=== PATIENT | male | born 1965 ===

== ENCOUNTER 2024-09-18 19:27 | Inpatient (IN) | payer OTHER, SELFPAY ==
[2024-09-18] VITALS (17 sets, daily range): BP systolic 81–121; BP diastolic 66–86; BMI 32.3
[2024-09-18] MEDS: NSS 500 IV (14:07)
[2024-09-18 14:08] LABS: Hematocrit 38.2 % (39.0-52.0); Hemoglobin 12.9 g/dL (13.0-18.0); Mean Corp Hgb Conc. 33.8 g/dL (33.0-37.0); Mean Corpuscular Hgb 30.4 pg (27.0-31.0); Mean Corpuscular Volume 90.1 fL (80.0-94.0); Red Blood Cell Count 4.24 10^6/uL (4.70-6.10); Red Cell Dist. Width 15.3 % (11.5-14.5); White Blood Cell Count 4.2 10^3/uL (4.8-10.8)
[2024-09-18] MEDS: ASPIRIN 325 MG PO (14:12)
--- NOTE | 2024-09-18 14:12 | ED.GENMED ---
Addendum entered and electronically signed by Donal Hernandez DO 09/18/24 15:26:
Call from pathologist patient with an abnormal smear blasts question of MDS, message sent to cardiology and hospitalist also copied oncology
Original Note:
History of Present Illness
General
Chief Complaint: Chest Pain
Source: patient and family
Exam Limitations: none
Time Seen by Provider: 09/18/24 13:45
History of Present Illness
History of Present Illness:
59-year male hypertensive diabetic 3 days of chest pain pressure with cough in his left chest and back worse with a deep breath does not go to his jaw on her arm, saw chemical equipment sales engineer that hold him referred here for cardiac cath initially told me he had
no chest pain and he told me he had mild chest pain, has some leg swelling had a recent procedure on his leg, takes aspirin but no other blood thinners, mother had CAD,
Phy Exam
Physical Exam
Physical Exam:
Physical Exam
General: 59-year-old male hypotensive nontoxic
Neck: No jaundice
Heart: s1/s2 regular rate and rhythm, no murmur. equal radial pulses.
Lungs: no acute respiratory distress. clear bilaterally
Abdomen: Not not
Neuro: alert and oriented. no focal neurological deficits
Skin: no rash
Psychiatric: well kept. interactive and cooperative
Extremities: Question left greater than right calf edema without pain
Scores
Heart Score for Chest Pain Patients
STEMI patient?: No
History: Moderately Suspicious
ECG: Significant ST-Depression
Age: >45 - <65 years
Risk Factors: >/= 3 Risk Factors or History of CAD
Troponin: >1 - <3 x Normal Limit
Heart Score for Chest Pain Patients: 7
Heart Score Risk: 72.7 % MACE over next 6 weeks
Course
Orders/Labs/Results
Orders:
Orders
09/18/24 12:40
Electrocardiogram (*1) Urgent
Reason for Study: Chest Pain
EKG- Treatment ONCE
09/18/24 13:50
Complete Blood Count/With Diff Urgent
Comprehensive Metabolic Panel Urgent
Magnesium Urgent
Manual Differential Urgent
Troponin I Urgent
09/18/24 13:54
Aspirin 325 mg PO NOW STA
09/18/24 13:55
Heparin 4,000 units IV NOW STA
Nursing to Place Non Medication Order As Directed
Physician Order: PTT 6 hours after initial start of Heparin infusion
Above order entered?: Yes
09/18/24 13:59
PTT Urgent
Comment: Obtain baseline before beginning heparin infusion if not already collected
09/18/24 14:00
Heparin 27889 Units/250 ml 25,000 units in 250 ml IV PER PROTOCOL
Weight to be used for heparin protocol in kilograms (kg):: 105
Protocol:: Cardiac Tx/Acute Coronary
PTT Goal Range to be used:: PTT 73 to 111 seconds
Order type:: Initial
INITIAL Infusion Dose (UNITS/KG/hr) & then follow protocol:: 12 units/kg/hr
Infusion Dose in UNITS/hr & then follow protocol (UNITS/hr):: 1,000
INFUSION RATE in mL/hr & then follow protocol (mL/hr):: 10
PTT less than or equal to 64 seconds:: Increase rate by 200 units/hr (+ 2 mL/hr)
PTT 64.1 to 72.9 seconds:: Increase rate by 100 units/hr (+ 1 mL/hr)
PTT 73 to 111 seconds:: Target Range. No change in rate.
PTT 111.1 to 130.9 seconds:: Decrease rate by 100 units/hr (- 1 mL/hr)
PTT 131 to 199.9 seconds:: HOLD for 1 hr. Then decrease rate by 200 units/hr (- 2 mL/hr)
PTT greater than or equal to 200 seconds:: HOLD for 2 hrs & Notify Provider. Then decrease by 200 units/hr (-
2 mL/hr)
Lab follow-up:: Each change, PTT q6h until 2 consecutive are therapeutic. Then PTT
daily.
09/18/24 14:01
Nitroglycerin 100 mg/250 ml [Nitroglycerin Premix] 100 mg in 250 ml .ROUTE .STK-MED
09/18/24 14:02
0.9% Sodium Chloride 500 ml [Nss] 500 ml IV BOLUS
09/18/24 14:06
CXR Port [CR Chest Portable - 1 View] Stat
Comment:
Reason For Exam: cp
Reason Study Needs to be Portable: Patient Unstable
09/18/24 14:11
CT Chest PE Study Stat
Comment:
Reason For Exam: cp stat no labs
09/18/24 14:15
Nitroglycerin 100 mg/250 ml [Nitroglycerin Premix] 100 mg in 250 ml IV PER PROTOCOL
Initial dose in mcg/min, then titrate:: 20
Titrate to keep:: Chest Pain Free
Titrate by mcg/min:: 5 mcg/min, may increase by 10 mcg/min if dose > 20 mcg/min
Frequency of titrations (minutes):: every 3-5 minutes
Maximum dose in mcg/min:: 200
Begin to taper infusion when:: Remained at goal for 2hrs
Taper by mcg/min:: 5 mcg/min
Frequency of taper (minutes) if patient maintains goal:: 30
Taper to off?: Yes
If infusion off & no longer maintaining goal:: Contact Provider
09/18/24 20:15
PTT Urgent
Abnormal Lab Results
09/18/24 09/18/24
13:50 13:59
WBC 4.2 L 10^3/uL
(4.8-10.8)
RBC 4.24 L 10^6/uL
(4.70-6.10)
Hgb 12.9 L g/dL
(13.0-18.0)
Hct 38.2 L %
(39.0-52.0)
RDW 15.3 H %
(11.5-14.5)
APTT 40.5 H Sec
(23.4-35.0)
BUN 22 H mg/dl
(9-20)
Troponin I 0.283 H* ng/ml
09/18/24 13:50
09/18/24 13:50
Vital Signs
Initial and Last Documented VS:
Initial Vital Signs
Temp Pulse Resp BP Pulse Ox
97.9 F 48 18 121/76 99
09/18/24 12:46 09/18/24 12:46 09/18/24 12:46 09/18/24 12:46 09/18/24 12:46
Last Documented Vital Signs
Temp Pulse Resp BP Pulse Ox
97.9 F 77 29 97/71 94
09/18/24 12:46 09/18/24 14:20 09/18/24 13:49 09/18/24 14:20 09/18/24 14:20
MDM/Problems Addressed
Differential Diagnosis Includes:
ACS unstable angina accelerated angina sputtering angina PE
MDM/Problems Addressed:
Chest pain shortness of breath
Chronic conditions affecting care: DM and HTN
Acute Exacerbation and/or Progression of Chronic Illness: DM and HTN
*Radiology
Radiology exam reviewed: preliminary read by ED provider
*Pulse Oximetry
Patient hypoxic: no
*EKG
Interpreted by ED Provider?: Yes
Interpretation: abnormal
Comparison EKG: no comparison EKG present
Heart Rate: 78
Rate: normal
Rhythm: sinus
Ischemia: non-specific ST changes
*Copper Tapper Interpretation
Rate: normal
Interpretation: normal
Heart Rate: 78
Rhythm: sinus
*Critical Care Note
Total Time (30-74mins, 75-104mins- exclusive of procedures): 31
Update Note
Update Note:
Update
Was some concern of pleuritic chest pain, sent for CT scan reviewed with radiology no PE, no dissection, troponin noted creatinine noted, cardiology Updated via text
ED Attending Note
-
Portions of this chart may have been created with voice recognition software.� Occasional wrong word or��sound alike� substitutions may have occurred due to the inherent limitations of voice recognition software.
Discharge Plan
Departure
Patient Disposition: Admit
Date of Disposition: 09/18/24
Time of Disposition: 14:57
Admit to: [facility]
Admit to doctor: tricia
Presentation/result/management discussed w/ accepting MD/DO: cardiology
Condition: Serious
Covid-19: Not Applicable
Discharge Problem:
ACS (acute coronary syndrome)
Prescriptions:
No Action
aspirin 81 mg Tablet,Delayed Release (Dr/Ec)
81 mg PO DAILY
temazepam 15 mg Capsule
15 mg PO HSPRN PRN (Reason: anxiety/sleep)
valsartan 40 mg Tablet
40 mg PO HS
rosuvastatin 5 mg Tablet
5 mg PO HS
Mounjaro 15 mg/0.5 mL Pen Injector
15 mg SC TU
Referrals:
Jose Toribio MD [Family Provider] -
Interventions
Interventions:
*Risk Screen - Suicide Last Done: 09/18/24 12:49
*General Assessment Last Done: 09/18/24 12:49
*Neglect/Abuse Screening Last Done: 09/18/24 12:49
*ED COVID-19 Vaccine History Last Done: 09/18/24 12:49
Discharge Date and Time
Print Language: Singaporean
[2024-09-18 14:15] LABS: ALT (SGPT) 34 U/L (0-50); AST (SGOT) 29 U/L (17-59); Albumin 4.1 g/dl (3.5-5.0); Alkaline Phosphatase 57 U/L (38-126); Blood Urea Nitrogen 22 mg/dl (9-20); Carbon Dioxide 28 mmol/L (22-30); Chloride 103 mmol/L (98-107); Estimated Creatinine Clearance 106 ml/min; Glucose 98 mg/dl (70-99); Magnesium 2.1 mg/dl (1.6-2.3); Potassium 4.2 mmol/L (3.5-5.1); Sodium 137 mmol/L (135-145); Total Bilirubin 1.1 mg/dl (0.2-1.3); Total Protein 6.7 g/dl (6.3-8.2); eGFR > 60.00
[2024-09-18] MEDS: HEPARIN 4000 UNITS IV (14:15)
[2024-09-18] MEDS: HEPARIN 25000 UNITS/250 ML IV (14:16)
[2024-09-18 14:20] LABS: APTT 40.5 Sec (23.4-35.0)
[2024-09-18 14:27] LABS: Troponin I 0.283 ng/ml
[2024-09-18 15:05] LABS: Mean Platelet Volume 10.7 fL (7.4-10.4); Platelet Count 65 10^3/uL (130-400)
--- NOTE | 2024-09-18 15:33 | HPS.HSE ---
Addendum entered and electronically signed by Jae Slater MD 09/18/24 17:43:
Pain ongoing past 3 days, worsens with pressing area. Pain is located T9-10 costochondrial jxn area. Does not worsen with exertion
Pt seen independently and agree with PA note
Lungs coarse BS, no wheeze
CV reg
Chest wall tender at T9-10 costochondrial jxn
Abd soft, nontender
Ext no edema
CBC with 10% Blasts
Imp: chest pain is most consistent with skeletal pain, atypical for cardiac etiology
Pancytopenia
CBC differential concerning for hematologic malignancy, will consult hematology
P:continue in IVU overnight
Hematology consult
Original Note:
Family Physician
-
Family Physician: Jose Toribio
Chief Complaint
-
Chest Pressure
History of Present Illness
Patient is a 59 y/o male past medical history of hypertension, hyperlipidemia, diabetes and COPD who presents with chest pressure. Patient reports 3 days of pressure in the left chest and back. He states pain is worse when he takes a deep breath.
He denies any radiation of the pain to the jaw or arm. He was seen by cardiology in the office today who sent him to the emergency department for evaluation. Work-up in the emergency department revealed elevated troponin and he was taken urgently
to the cathode washer. Preliminary report from staff is 'clean coronaries'.
Medical History
Past Medical History
Past Medical History: Reports Other
Additional Past Medical History:
Diabetes Mellitus, Type II
Essential Hypertension
Hyperlipidemia
COPD
Anxiety / Insomnia
Past Surgical History: Reports Other
Additional Past Surgical History:
Hernia Repair
Vein Stripping LLE
Social History
Tobacco: Former Smoker (Quit 11 years ago)
Alcohol: Occasional
Family History
Family History: Other (Mother: CAD)
Allergies / Home Medications
Allergies reflects when Allergies were last updated in [employer].
Home Medications with original date entered in [employer]
Allergy/Medication List:
Allergies
Allergy/AdvReac Type Severity Reaction Status Date / Time
No Known Allergies Allergy Unverified 09/18/24 12:47
Home Medications
aspirin 81 mg tablet,delayed release 81 mg PO DAILY 09/18/24
rosuvastatin 5 mg tablet 5 mg PO HS 09/18/24
temazepam 15 mg capsule 15 mg PO HSPRN PRN anxiety/sleep 09/18/24
tirzepatide 15 mg/0.5 mL subcutaneous pen injector (Mounjaro) 15 mg SC TU 09/18/24
valsartan 40 mg tablet 40 mg PO HS 09/18/24
Review of Systems
-
A 12 point ROS was completed and negative except as noted: Yes
Respiratory: Reports Trouble Breathing
Cardiac: Reports Chest Pain
Musculoskeletal: Reports Edema (Patient report notes occasional lower extremity edema in the evening after being on his feet during the day, and notes the left seems to swell more than the right)
Physical Exam
Vital Signs
Vital Signs
Temp Pulse Resp BP Pulse Ox
97.9 F 77 29 97/71 94
09/18/24 12:46 09/18/24 14:20 09/18/24 13:49 09/18/24 14:20 09/18/24 14:20
Physical Exam
General: Comfortable and Conversant
HEENT: Anicteric and Moist mucous membranes
Respiratory: Clear and Non Labored Respirations
Cardiac: S1/S2 and Regular Rhythm
GI: Soft and Non Tender
Rectal: Deferred by Provider
Musculoskeletal: No Clubbing, No Cyanosis and Other (Trace edema LLE)
Skin: Warm and Dry
Neuro: Awake, Alert and Nonfocal/grossly intact
Psych: Calm
Laboratory Results
-
09/18/24 13:50
09/18/24 13:50
Laboratory Results
APTT 40.5 Sec (23.4-35.0) H 09/18/24 13:59
Total Bilirubin 1.1 mg/dl (0.2-1.3) 09/18/24 13:50
AST 29 U/L (17-59) 09/18/24 13:50
ALT 34 U/L (0-50) 09/18/24 13:50
Alkaline Phosphatase 57 U/L (38-126) 09/18/24 13:50
Troponin I 0.283 ng/ml H* 09/18/24 13:50
Data Reviewed
-
Lab Data: Labs Reviewed by me
Impression/Plan
-
NSTEMI
-Patient underwent cardiac cath on 09/18/24 with reported 'clear coronaries'
-Stop heparin drip
-Patient received aspirin 325mg in ED
-Patient previously taking aspirin 81mg daily as outpatient - Will hold on further anti-platelets for now given his thrombocytopenia until seen by hematology
-Trend troponin
-Check Echo in AM
Pancytopenia
-Blood Smear Pathology revealed 10% blasts concerning for MDS
-Consult Hematology
-Monitor counts closely
Diabetes Mellitus, Type II
-Patient maintained on Mounjaro as outpatient
-Check HgbA1c
-Monitor sugars and continue coverage insulin
Essential Hypertension
-Continue valsartan with hold parameters
Hyperlipidemia
-Check Lipid Panel
-Continue rosuvastatin
COPD, no acute exacerbation
-Patient does not use any inhalers as outpatient
Anxiety / Insomnia
-Continue temazepam prn
DVT proph: SCDs
Code Status: Full Code
[2024-09-18 15:59] LABS: Absolute Neutrophils -Man Diff 1.5 10^3/uL (1.4-6.5); Atypical Lymphocytes 1 %; Band Neutrophils 14 % (0-3); Eosinophils 1 % (0-6); Lymphocytes 20 % (20-51); Monocytes 16 % (2-9); Pathologist Reviewed Yes; Segmented Neutrophils 22 % (42-75)
[2024-09-18 16:00] LABS: Metamyelocytes 4 % (-); Myelocytes 12 % (-); Normal RBC Morphology Yes; Platelets Checked Yes; Total Cells Counted 100
[2024-09-18 16:02] LABS: Blasts 10 % (-)
[2024-09-18 17:22] LABS: Glucose - Point of Care 115 mg/dl (70-99)
--- NOTE | 2024-09-18 18:15 | ITS.CL.PN ---
Head And Neck Surgeon - Procedure Note
Procedure
Procedure Note:
CARDIAC CATHETERIZATION REPORT
Date of Procedure: 09/18/2024
Referring: Dr. Yash Bear MD
Indication: NSTEMI
PROCEDURE(S)
1. left heart catheterization
2. coronary angiography
ACCESS: 6F right radial artery (closure: radial band)
CATHETERS
1. 6F REHANA (best for RCA due to downward takeoff)
2. 6F JL4
MODERATE SEDATION: 30 minutes of moderate sedation was utilized. An independent medical nurse was present to assist with and help manage the patient's level of consciousness and physiologic status.
HEMODYNAMIC DATA
LV 83/5 (EDP 12) mmHg
AO 87/65 (mean 78) mmHg
CORONARY ANGIOGRAPHY
Dominance: Right
LM: large, normal
LAD: Large vessel giving rise to a single large diagonal branch and wrapping around the apex. There are trivial luminal irregularities only.
LCx: Large vessel giving rise to a medium caliber high rising OM1, medium caliber OM2, large caliber OM3, and medium caliber LPL branch. There are trivial luminal irregularities only.
RCA: Large vessel with an anterior and downsloping takeoff giving rise to a moderate caliber RPDA and small RPL branch. There is mild nonobstructive disease. There are trivial luminal irregularities only.
RADIATION: dose 1020 mGy; DAP 83 Gy*cm2; fluoroscopy time 11.6 min
CONCLUSIONS
1. Nonobstructive coronary artery disease as described
2. Normal LV filling pressure and no aortic stenosis
RECOMMENDATIONS
1. Stop aspirin and heparin
2. Hematology consult for thrombocytopenia and blasts on blood smear, concerning for hematologic malignancy
3. Further workup for etiology of likely nonischemic myocardial injury, starting with transthoracic echocardiogram and inflammatory markers
Copy to: Yash Bear MD (allergy specialist)
Signed: Mamadou Harris MD, PhD
--- NOTE | 2024-09-18 18:26 | CON.CAR ---
Consultation
Consultation Request
Date/Time Consultation Requested: 09/18/2024
Date/Time Consultation Performed: 09/18/2024
Requesting Provider: Dr. Donal Hernandez
Performing Provider: Dr. Deniz Harris
Reason for Consultation: NSTEMI
Medical History
-
Chief Complaint: chest pain
History of Present Illness:
Mr. Cardona is a 59-year-old man with past medical history of diabetes, hypertension, hyperlipidemia, former smoker, who presents with several days of worsening pleuritic chest pain. He notes pain with deep inspiration and pain with coughing
which is new over several days. He has never had this symptom before. He denies any associated shortness of breath, lightheadedness dizziness, palpitations. Given the symptoms he was evaluated by his agriculture department chair Dr. Yash Bear. An EKG was performed
with baseline right bundle branch block and subtle inferior ST changes. In this setting he was sent to the ED for urgent evaluation. In the ED labs were significant for new thrombocytopenia with blasts reported on smear and elevated troponin.
Cardiac catheterization was performed which demonstrated mild CAD and normal LV filling pressure with no aortic stenosis. Given the patient's new thrombocytopenia, he was admitted to medicine with plan for hematologic workup.
Past Medical History
Past Medical History: HTN, Hypercholesterolemia and NIDDM
Social History
Tobacco: Former Smoker
Personal:
Living: With Family
Employment: Employed
Allergies / Home Medications
Allergy/AdvReac Type Severity Reaction Status Date / Time
No Known Allergies Allergy Verified 09/18/24 17:10
�Medication �Instructions �Recorded �Confirmed �Type
aspirin 81 mg tablet,delayed 81 mg PO DAILY 09/18/24 09/18/24 History
release
rosuvastatin 5 mg tablet 5 mg PO HS 09/18/24 09/18/24 History
temazepam 15 mg capsule 15 mg PO HSPRN PRN anxiety/sleep 09/18/24 09/18/24 History
tirzepatide 15 mg/0.5 mL 15 mg SC TU 09/18/24 09/18/24 History
subcutaneous pen injector
(Jeffery)
valsartan 40 mg tablet 40 mg PO HS 09/18/24 09/18/24 History
Review of Systems
-
Cardiac: Chest Pain
Physical Exam
Vital Signs
Temp Pulse Resp BP Pulse Ox
36.6 C 82 29 101/75 94
09/18/24 12:46 09/18/24 15:15 09/18/24 13:49 09/18/24 15:00 09/18/24 14:20
Lab Results
09/18/24 13:50
09/18/24 13:50
Troponin I 0.283 ng/ml H* 09/18/24 13:50
Physical Exam
General: Well Developed
HEENT: Normocephalic
Respiratory: Clear
Cardiac: S1/S2
Skin: Warm
Neuro: AO x 3
Impression / Plan
-
59-year-old male with cardiac risk factors presenting with several days of pleuritic chest pain, found to have elevated troponin with nonobstructive CAD on cardiac cath. Workup also notable for new thrombocytopenia and blasts on peripheral blood
smear concerning for possible hematologic malignancy.
Chest pain, Non-ischemic myocardial injury
Cath 09/18 with nonobstructive CAD and normal LV filling pressure
CTPE negaitve for PE
Etiology unclear at this time, will workup for non-ischemic etiologies including myopericarditis
order TTE, inflammatory marker
Can stop aspirin and heparin
Thrombocytopenia
New diagnosis, with blasts on smear concerning for hematologic malignancy
Workup per medicine team
Recommend hematology consult
Hypertension
Blood pressure currently low normal, restart home meds as needed
Hyperlipidemia
Continue statin
Diabetes
On injectables at home, management per medicine
CTPE 09/18/2024
IMPRESSION:
No evidence of central pulmonary embolism.
Mild cardiomegaly.
Mild groundglass opacification, nonspecific, possibly representing some mild pulmonary edematous changes.
Bibasilar subsegmental atelectasis.
Scattered small mediastinal and bilateral hilar lymph nodes, indeterminate.
Data Reviewed
-
EKG: Tracing Personally Visualized and interpreted
CT Scan: Image Personally Visualized and interpreted
Medical Tests (Nuc Med, Echo etc): Image Personally Visualized and interpreted
Labs: Labs Reviewed by me
--- NOTE | 2024-09-18 20:55 | W.PN.UPDATE ---
Update Note
Progress Note Update
~20:41 Pt c/o chills and achiness. Oral temp 101.6, Tylenol given.
Additional labs: UA reflex to cx, Blood cx - pending, lactic 0.8, Flu A&B, both negative. COVID - negative. CXR taken in afternoon, Pulmonary vascularity at least top normal.
~ 1 am, repeat temperature 99.2.
~ 4 am - AM labs: Critical labs - Platelets 63, WBC 3.7, Blasts 9. Troponin now 3.410, repeat troponin ordered for 10 am.
[2024-09-18] MEDS: TYLENOL 650 MG PO (21:28)
[2024-09-18] MEDS: CRESTOR 5 MG PO (21:29)
[2024-09-18 21:49] LABS: Lactic Acid 0.8 mmol/L (0.7-2.0)
[2024-09-18 22:08] LABS: Glucose - Point of Care 145 mg/dl (70-99)
[2024-09-18 22:47] LABS: COVID-19 Antigen Negative (Negative)
[2024-09-19] VITALS (8 sets, daily range): BP systolic 96–104; BP diastolic 62–72; BMI 32.4
--- NOTE | 2024-09-19 00:20 | PTCARENOTE ---
Rec'd pt at change of shift. AAO*3, VSS, and SR on TELE monitor. Pt denies any pain or discomfort. R Radial site CDI. Pt agreed to R limb restriction. 20:00 Troponin increased to 1.670 and LLOYD Klein notified. Pt complained of feeling clammy,
achy, and hot. Temperature of 101.6 orally. [employer] notified. Rec'd order for blood cultures x2, Tylenol for fever (given as ordered), covid/flu swab, and lactic acid. Pt updated on plan of care and verbalizes understanding, now resting with call
[place] in reach. Plan of care ongoing and see MAR and flowchart for full pt assessment.
[2024-09-19 03:45] LABS: Hematocrit 40.1 % (39.0-52.0); Hemoglobin 13.6 g/dL (13.0-18.0); Mean Corp Hgb Conc. 33.9 g/dL (33.0-37.0); Mean Corpuscular Hgb 30.2 pg (27.0-31.0); Mean Corpuscular Volume 88.9 fL (80.0-94.0); Mean Platelet Volume 11.9 fL (7.4-10.4); Platelet Count 63 10^3/uL (130-400); Red Blood Cell Count 4.51 10^6/uL (4.70-6.10); Red Cell Dist. Width 14.9 % (11.5-14.5); White Blood Cell Count 3.7 10^3/uL (4.8-10.8)
[2024-09-19 04:03] LABS: ALT (SGPT) 30 U/L (0-50); AST (SGOT) 37 U/L (17-59); Albumin 4.2 g/dl (3.5-5.0); Alkaline Phosphatase 59 U/L (38-126); Blood Urea Nitrogen 17 mg/dl (9-20); Calcium 8.7 mg/dl (8.4-10.2); Carbon Dioxide 23 mmol/L (22-30); Chloride 104 mmol/L (98-107); Estimated Creatinine Clearance 120 ml/min; Glucose 125 mg/dl (70-99); HDL Cholesterol 43 mg/dl; LDL Cholesterol, Calculated 70 mg/dl; Potassium 4.3 mmol/L (3.5-5.1); Sodium 136 mmol/L (135-145); Total Bilirubin 1.1 mg/dl (0.2-1.3); Total Cholesterol 125 mg/dl (50-199); Total Protein 6.6 g/dl (6.3-8.2); Triglyceride 64 mg/dl (10-149); Very Low Density Lipoprotein 12 mg/dl (0-30); eGFR > 60.00
[2024-09-19 04:21] LABS: Absolute Neutrophils -Man Diff 1.3 10^3/uL (1.4-6.5); Band Neutrophils 4 % (0-3); Lymphocytes 30 % (20-51); Monocytes 24 % (2-9); Segmented Neutrophils 33 % (42-75)
[2024-09-19 04:23] LABS: Blasts 9 % (-)
[2024-09-19 05:27] LABS: Urine Bilirubin Negative (Negative); Urine Character Clear (Clear); Urine Color Yellow; Urine Glucose Negative (Negative); Urine Ketone 2+ (Negative); Urine Leukocyte Negative (Negative); Urine Nitrite Negative (Negative); Urine Occult Blood Negative (Negative); Urine Urobilinogen Negative (Neg - 1+)
[2024-09-19 05:34] LABS: Urine Albumin Trace (Neg - Trace)
--- NOTE | 2024-09-19 06:00 | PTCARENOTE ---
Morning blood work resulted with elevated troponin. LLOYD Klein notified and addition q6 trop ordered. Decreased blasts count resulted with low WBC and LLOYD Klein aware. Pt updated on plan of care and resting with call [place] in reach.
[2024-09-19 08:09] LABS: Glucose - Point of Care 128 mg/dl (70-99)
[2024-09-19] MEDS: TYLENOL 650 MG PO ×2 (09:08→21:06)
--- NOTE | 2024-09-19 09:15 | W.PN.CD ---
Addendum entered and electronically signed by Eliecer Hayes MD 09/19/24 12:40:
Will check and troponin and EKG in AM
Original Note:
Today's Communication / Plan
-
Echo
Hold off on colchicine/antiplatelets
Hold off on cardiac MRI
We think inflammatory markers will be nonspecific and we did not order
W/u Fever and hematologic abnormalities
Discussed with Dr Harris.
Impression / Plan
-
59-year-old male with cardiac risk factors presenting with several days of pleuritic chest pain, found to have elevated troponin with nonobstructive CAD on cardiac cath. Workup also notable for new thrombocytopenia and blasts on peripheral blood
smear concerning for possible hematologic malignancy.
Chest pain, Non-ischemic myocardial injury
- Trop 0.28 => 1.67 => 3.4 => pending
- No heart failure, LVEDP 12
- Negative cath/CT Chest PE protocol
- Inflammatory markers will be nonspecific
- Check echo
- No antiplatelet therapy (low platelets)
- For now no colchicine
- For now no cardiac MRI
Fever
- Cultures pending
- Further workup per medicine
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
- ++ Blasts/thrombocytopenia
- Hematology consulted
Mild non-obstructive coronary atherosclerosis
- Risk factor modification
- For now no antiplatelet therapy
Hypertension
Hyperlipidemia
Diabetes, type II
Obesity, BMI, 32.4
Subjective: Fever noted. Still left lateral dull chest pain (3 days of symptoms), wax and wane
Physical Exam
Vital Signs/Labs
Vital Signs
Temp Pulse Resp BP Pulse Ox
100.1 F 83 28 100/70 92
09/19/24 07:42 09/19/24 07:41 09/19/24 07:42 09/19/24 07:41 09/19/24 07:42
09/18/24 09/19/24 09/20/24
06:59 06:59 06:59
Actual Weight 105.4 kg
09/19/24 03:04
09/19/24 03:04
APTT Cancelled 09/18/24 20:15
Magnesium 2.1 mg/dl (1.6-2.3) 09/18/24 13:50
Triglycerides 64 mg/dl (10-149) 09/19/24 03:04
LDL Cholesterol, Calc 70 mg/dl 09/19/24 03:04
VLDL Cholesterol, Calc 12 mg/dl (0-30) 09/19/24 03:04
HDL Cholesterol 43 mg/dl 09/19/24 03:04
LAB Results
09/18/24 09/18/24 09/19/24
13:50 20:19 03:04
Troponin I 0.283 H* 1.670 H* D 3.410 H* D
Physical Exam
Constitutional: No acute distress
EENT: Anicteric
Cardiovascular: Rhythm & rate is regular and Pedal edema is absent
Respiratory: Respiratory effort normal and Lungs clear to auscul.
GI: Soft and Distention absent
Neuro/Psych: AO x 3
Other: Cath Site (radial site is normal, hand normal)
Data Reviewed
-
Date of Service: September 19, 2024
--- NOTE | 2024-09-19 09:41 | CON.ONC ---
Impression
Impression
Progressive thrombocytopenia
Peripheral blasts 10%
Noncardiac chest pain
Hypertension
Diabetes
COPD
Plan
Plan
According to daughter who has CBC records his platelet count has been dropping over the past 6 months.
Platelet count = 221, 03/2024
Platelet count = 97,000, 09/07/2024
Platelet count = 65,000 currently.
In addition, patient has about 10% blasts seen in the peripheral blood.
This could represent MDS or acute leukemia.
Peripheral blood flow cytometry has been ordered.
Bone marrow aspirate and biopsy may be necessary but this is not done as an inpatient. Will schedule outpatient follow-up and make arrangements for an outpatient bone marrow biopsy to evaluate for underlying MDS or leukemia.
Patient History
History of Present Illness
CC: Chest Pressure
HPI: 59 y/o man with underlying hypertension and type 2 diabetes mellitus presents to the emergency room with 3-day history of chest pain/pressure, cough. Some pleuritic component to his chest pain. He was seen by his frame welder cargo utility trailers who referred
him to the emergency room for further evaluation. In the ER, he was noted to have elevated serum troponin and was taken urgently to the cardiac catheterization lab that was relatively unremarkable. Patient is currently getting an echocardiogram.
Hematology was consulted because of progressive thrombocytopenia and 10% peripheral blasts seen on smear. He mentions that he had a flulike illness approximately 2 months ago and has some residual cough. He denies any fevers, chills, night sweats.
According to him and his daughter, patient has been feeling not great for the past 2 months although no specific sites of bleeding, fevers, chills, night sweats.
Past-Medical/Surgical History
PMH:
Diabetes Mellitus, Type II
Essential Hypertension
Hyperlipidemia
COPD
Anxiety / Insomnia
PSH:
Hernia Repair
Vein Stripping LLE
SH
Dentist
Tobacco: Former Smoker (Quit 11 years ago)
Alcohol: Occasional
Family History
Family History: Other (Mother: CAD)
Patient Medication
�Medication �Instructions �Recorded �Confirmed �Last Taken �Type
aspirin 81 mg tablet,delayed 81 mg PO DAILY 09/18/24 09/18/24 09/17/24 History
release
rosuvastatin 5 mg tablet 5 mg PO HS 09/18/24 09/18/24 09/17/24 History
temazepam 15 mg capsule 15 mg PO HSPRN PRN anxiety/sleep 09/18/24 09/18/24 Unknown History
tirzepatide 15 mg/0.5 mL 15 mg SC TU 09/18/24 09/18/24 Unknown History
subcutaneous pen injector
(Jeffery)
valsartan 40 mg tablet 40 mg PO HS 09/18/24 09/18/24 09/17/24 History
Active Medications
Generic Name Dose Route Start Last Admin
Trade Name Freq PRN Reason Stop Dose Admin
Acetaminophen 650 mg 09/18/24 20:53 09/19/24 09:08
Acetaminophen 325 Mg Tablet PO 10/16/24 20:52 650 mg
Q4HPRN PRN Administration
headache,mild pain,fever>100.4
Dextrose 12.5 grams 09/18/24 17:10
Dextrose 50% (0.5 Grams/Ml) 50 Ml Syringe IV 10/16/24 17:09
[id number] PRN
hypoglycemia
Protocol
Glucagon 1 mg 09/18/24 17:10
Glucagon 1 Mg Vial IM 10/16/24 17:09
PRN PRN
hypoglycemia
Protocol
Sodium Chloride 1,000 mls @ 0 mls/hr 09/18/24 16:00
Nss IV 09/19/24 15:59
PER PROTOCOL DAVID
Protocol
Per Protocol
Insulin Aspart 0 units 09/19/24 07:30 09/19/24 08:55
Insulin Aspart Low Resistance 300 Units/3 Ml Pen.Injctr SC 10/17/24 07:29 Not Given
AC DAVID
Protocol
Rosuvastatin Calcium 5 mg 09/18/24 22:00 09/18/24 21:29
Rosuvastatin (Crestor) 5 Mg Tablet PO 10/16/24 21:59 5 mg
HS DAVID Administration
Sodium Chloride 0 flush 09/18/24 17:00
Sodium Chloride 0.9% (Flush) Syringe IV 10/16/24 16:59
PER PROTOCOL DAVID
Temazepam 15 mg 09/18/24 22:00
Temazepam 15 Mg Capsule PO 10/16/24 21:59
HSPRN PRN
anxiety/sleep
Valsartan 40 mg 09/18/24 22:00 09/18/24 21:31
Valsartan 40 Mg Tablet PO 10/16/24 21:59 Not Given
HS DAVID
Physical Exam
-
Exam deferred as patient currently getting echocardiogram.
General: Well Developed, Well Nourished and No Apparent Distress
Labs
Lab Results
WBC 3.7 10^3/uL (4.8-10.8) L 09/19/24 03:04
RBC 4.51 10^6/uL (4.70-6.10) L 09/19/24 03:04
Hgb 13.6 g/dL (13.0-18.0) 09/19/24 03:04
Hct 40.1 % (39.0-52.0) 09/19/24 03:04
MCV 88.9 fL (80.0-94.0) 09/19/24 03:04
MCH 30.2 pg (27.0-31.0) 09/19/24 03:04
MCHC 33.9 g/dL (33.0-37.0) 09/19/24 03:04
RDW 14.9 % (11.5-14.5) H 09/19/24 03:04
Plt Count 63 10^3/uL (130-400) L 09/19/24 03:04
MPV 11.9 fL (7.4-10.4) H 09/19/24 03:04
Creatinine 0.8 mg/dL (0.7-1.3) 09/19/24 03:04
Vital Signs
Vital Signs
Temp Pulse Resp BP Pulse Ox
100.1 F 83 28 100/70 93
09/19/24 07:42 09/19/24 07:41 09/19/24 07:42 09/19/24 07:41 09/19/24 09:14
[2024-09-19 10:13] LABS: Glycohemoglobin (HgbA1c) 6.5 % (4.0-5.6)
--- NOTE | 2024-09-19 12:17 | CM ---
Chart reviewed. Patient is independent of ADLS, lives with his in a [address], [address], 0 DME. Plan is for the patient to return home. CM to follow
[2024-09-19 12:25] LABS: Glucose - Point of Care 120 mg/dl (70-99)
[2024-09-19 15:20] LABS: Normal RBC Morphology Yes; Platelets Checked Yes; Total Cells Counted 100
--- NOTE | 2024-09-19 16:03 | W.PN.HOSP.TC ---
Today's Communication/Plan
-
ID consult
trend Troponins
follow CBC
Assessment / Plan
Assessment / Plan
NSTEMI
-Patient underwent cardiac cath on 09/18/24 with reported 'clear coronaries'
-Stop heparin drip
-Patient received aspirin 325mg in ED
pt was definitely tender pressing on left T9-10 costochondrial jxn
CORONARY ANGIOGRAPHY
Dominance: Right
LM: large, normal
LAD: Large vessel giving rise to a single large diagonal branch and wrapping around the apex. There are trivial luminal irregularities only.
LCx: Large vessel giving rise to a medium caliber high rising OM1, medium caliber OM2, large caliber OM3, and medium caliber LPL branch. There are trivial luminal irregularities only.
RCA: Large vessel with an anterior and downsloping takeoff giving rise to a moderate caliber RPDA and small RPL branch. There is mild nonobstructive disease. There are trivial luminal irregularities only.
-Patient previously taking aspirin 81mg daily as outpatient - Will hold on further anti-platelets for now given his thrombocytopenia until seen by hematology
-Trend troponin peaked 3.[address] Hayes, etio of elevated trop unclear in pt with 'clean' coronaries
- Echo:Normal biventricular size and systolic function without regional wall motion
abnormality.
No significant valvular disease.
Dilated ascending aorta is 4.2 cm.
No prior study available for comparison.
Pancytopenia
-Blood Smear Pathology revealed 10% blasts concerning for MDS/Leukemia
-Consult Hematology, input of Dr. Casarez noted and appreciated
-Monitor counts closely
Low grade intermittent fever of unclear etio
will consult ID, discussed with Dr. Gray, can hold abx for now
Diabetes Mellitus, Type II
-Patient maintained on Mounjaro as outpatient
-HgbA1c 6.5%
-Monitor sugars and continue coverage insulin
Essential Hypertension
-Continue valsartan with hold parameters
Hyperlipidemia
-Lipid Panel
chol 125/trig 64/LDL 70/HDL 43
-Continue rosuvastatin
COPD, no acute exacerbation
-Patient does not use any inhalers as outpatient
CT scan of chest done for Chest congestion: No evidence of central pulmonary embolism.
Mild cardiomegaly.
Mild groundglass opacification, nonspecific, possibly representing some mild pulmonary edematous changes.
Bibasilar subsegmental atelectasis.
Scattered small mediastinal and bilateral hilar lymph nodes, indeterminate.
Anxiety / Insomnia
-Continue temazepam prn
DVT proph: SCDs
reviewed with at bedside
complex situation
Code Status: Full Code
Anticipated Discharge: 24 - 48 hours
Subjective/Interval History
-
Date of Service: September 19, 2024
Feels weak
Objective Data
-
Labs:
Laboratory Results
09/19/24
03:04
Sodium 136
Potassium 4.3
Chloride 104
Carbon Dioxide 23
BUN 17
Creatinine 0.8
Glucose 125 H
Calcium 8.7
Total Bilirubin 1.1
AST 37
ALT 30
Alkaline Phosphatase 59
Vital Signs:
Vital Signs
Temp Pulse Resp BP Pulse Ox
99 F 86 22 104/72 94
09/19/24 15:07 09/19/24 15:07 09/19/24 15:07 09/19/24 15:07 09/19/24 15:07
I&O
09/18/24 09/19/24 09/20/24
06:59 06:59 06:59
Intake Total 720 / 720 180 / 180
Output Total 300 / 300
Balance 420 / 420 180 / 180
Review of Systems
-
History Source: Patient, Family ( in room) and Coordinated Provider
Constitutional: Reports Fever (101.6 09/18 at 20:31)
EENT: Reports No Symptoms Reported
Respiratory: Reports Cough (ongoing for months)
Abdomen/GI: Reports No Symptoms
Genitourinary: Reports No Symptoms
Neuro: Reports No Symptoms
Physical Exam
-
General: Well Developed, Well Nourished and No Apparent Distress
HEENT: Normocephalic, Atraumatic and Moist Mucous Membranes
Respiratory: Rhonchi (bibasilar rhonchi); Negative Wheezes or Rales
Cardiac: Regular Rhythm and S1/S2
GI: Nontender and Nondistended
Musculoskeletal: No Clubbing, No Cyanosis and No Edema
Skin: Warm and Dry
Neuro: Awake, Alert and Oriented
[2024-09-19 17:46] LABS: Glucose - Point of Care 189 mg/dl (70-99)
--- NOTE | 2024-09-19 18:10 | PTCARENOTE ---
Pt resting in bed for most of the day,c/o mild headache and left axillary chest discomfort if he presses on it. Pt reports feeling weak and tired. Low grade fever. Blood cultures sent again today. Troponin peaked at 3.41, Dr. Hayes aware. Telemetry
shows sinus rhythm, SBP 96-104. Echo done at bedside.
[2024-09-19 19:35] LABS: Procalcitonin < 0.05 ng/ml (0.0-0.25)
--- NOTE | 2024-09-19 20:34 | PTCARENOTE ---
Patient received at change of shift resting in the bed. Patient's only complaint is generalized weakness and ongoing productive cough. Sinus rhythm on telemetry. Oxygen saturation on room air 93-95%. Right radial cath site MERCHANDISING MANAGER, intact. Radial pulses
palpable. Dr. Slater notified of procalcitonin result as requested. Plan of care discussed with patient. Call [place] within reach. Care ongoing.
[2024-09-19] MEDS: CRESTOR 5 MG PO (21:07)
[2024-09-19 21:54] LABS: Glucose - Point of Care 129 mg/dl (70-99)
[2024-09-19] MEDS: RESTORIL 15 MG PO (23:01)
[2024-09-20 03:29] VITALS: BP 99/73
[2024-09-20 04:31] LABS: Hematocrit 41.1 % (39.0-52.0); Hemoglobin 13.6 g/dL (13.0-18.0); Mean Corp Hgb Conc. 33.1 g/dL (33.0-37.0); Mean Corpuscular Hgb 30.1 pg (27.0-31.0); Mean Corpuscular Volume 90.9 fL (80.0-94.0); Platelet Count 67 10^3/uL (130-400); Red Blood Cell Count 4.52 10^6/uL (4.70-6.10); Red Cell Dist. Width 14.8 % (11.5-14.5); White Blood Cell Count 4.5 10^3/uL (4.8-10.8)
[2024-09-20 05:20] LABS: Troponin I 0.973 ng/ml
[2024-09-20 06:15] LABS: Erythrocyte Sed Rate 38 mm/hour (0-20)
[2024-09-20 07:31] VITALS: BP 92/66
[2024-09-20 07:35] LABS: Absolute Neutrophils -Man Diff 2.1 10^3/uL (1.4-6.5); Atypical Lymphocytes 7 %; Band Neutrophils 8 % (0-3); Eosinophils 2 % (0-6); Lymphocytes 33 % (20-51); Monocytes 6 % (2-9); Myelocytes 2 % (-); Normal RBC Morphology No; Nucleated Red Blood Cells 1 (-); Platelets Checked Yes; Segmented Neutrophils 40 % (42-75)
[2024-09-20 07:36] LABS: Anisocytosis 1+; Polychromasia 1+; Total Cells Counted 100; Toxic Granulation 2+
[2024-09-20 07:37] LABS: Blasts 2 % (-)
[2024-09-20 08:13] LABS: Glucose - Point of Care 121 mg/dl (70-99)
--- NOTE | 2024-09-20 08:15 | W.PN.CD ---
Today's Communication / Plan
-
stable for discharge from a cardiac standpoint with follow up with Dr. Yash Bear
cardiology will sign off, please call with further questions
Impression / Plan
-
59-year-old male with cardiac risk factors presenting with several days of pleuritic chest pain, found to have elevated troponin with nonobstructive CAD on cardiac cath. Workup also notable for new thrombocytopenia and blasts on peripheral blood
smear concerning for possible hematologic malignancy.
Chest pain, Non-ischemic myocardial injury
- Trop peak at 0.3
- No heart failure, LVEDP 12
- Negative cath/CT Chest PE protocol
- Inflammatory markers will be nonspecific
- Echo unremarkable
- No antiplatelet therapy (low platelets)
- For now no colchicine
- Can consider cardiac MRI as outpatient but this is likely myocardiac injury secondary to his underlying malignancy and systemic inflammation
Fever
- Cultures pending
- Further workup per medicine
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
- ++ Blasts/thrombocytopenia
- Hematology consulted, plan for flow cytometry and outpatient bone marrow biopsy
Mild non-obstructive coronary atherosclerosis
- Risk factor modification
- For now no antiplatelet therapy
Hypertension
Hyperlipidemia
Diabetes, type II
Obesity, BMI, 32.4
Subjective: Chest pain improved, fever improved
Physical Exam
Vital Signs/Labs
Vital Signs
Temp Pulse Resp BP Pulse Ox
37.2 C 87 18 99/73 95
09/20/24 07:30 09/20/24 05:00 09/20/24 07:30 09/20/24 03:29 09/20/24 07:30
09/19/24 09/20/24 09/21/24
06:59 06:59 06:59
Actual Weight 105.4 kg
09/20/24 03:42
09/19/24 03:04
APTT Cancelled 09/18/24 20:15
Magnesium 2.1 mg/dl (1.6-2.3) 09/18/24 13:50
Triglycerides 64 mg/dl (10-149) 09/19/24 03:04
LDL Cholesterol, Calc 70 mg/dl 09/19/24 03:04
VLDL Cholesterol, Calc 12 mg/dl (0-30) 09/19/24 03:04
HDL Cholesterol 43 mg/dl 09/19/24 03:04
LAB Results
09/18/24 09/18/24 09/19/24
13:50 20:19 03:04
Troponin I 0.283 H* 1.670 H* D 3.410 H* D
09/19/24 09/19/24 09/20/24
10:24 16:46 03:42
Troponin I 3.110 H* 1.860 H* D 0.973 H*
Physical Exam
Constitutional: No acute distress
Cardiovascular: Rhythm & rate is regular
Respiratory: Respiratory effort normal
Neuro/Psych: AO x 3
Data Reviewed
-
Date of Service: September 20, 2024
Medical Decision Making: External Notes
EKG: Tracing Personally Visualized and interpreted
Echo: Tracing Personally Visualized and interpreted
X-Ray/CT/US/MRI/NUC/PET: Image Personally Visualized and interpreted
Labs: Labs Reviewed by me
--- NOTE | 2024-09-20 09:22 | W.PN.ONC2 ---
Today's Communication / Plan
-
.
Impression
Impression
Progressive thrombocytopenia
Peripheral blasts 10%
Noncardiac chest pain
Hypertension
Diabetes
COPD
Plan
Plan
Dr. Vela reviewed with pt and family at bedside that peripheral flow showed Monocytosis with immature forms and 1.4% CD34 positive myeloblasts detected. We will plan for OP bone marrow biopsy next week. I have tiger texted the interventional
clinical collection manager to facilitate OP bone marrow biopsy scheduling and I have contacted my office to arrange close follow up.
Subjective/Objective
Subjective
feeling better but not 100%
Tmax 101.4F overnight
Vital Signs:
Vital Signs
Temp Pulse Resp BP Pulse Ox
99.0 F 87 18 92/66 95
09/20/24 07:30 09/20/24 09:00 09/20/24 07:30 09/20/24 07:31 09/20/24 07:30
Lab Results:
Laboratory Data
WBC 4.5 10^3/uL (4.8-10.8) L 09/20/24 03:42
Hgb 13.6 g/dL (13.0-18.0) 09/20/24 03:42
Plt Count 67 10^3/uL (130-400) L 09/20/24 03:42
APTT Cancelled 09/18/24 20:15
eGFR > 60.00 09/19/24 03:04
--- NOTE | 2024-09-20 09:53 | CON.ID ---
Consultation
-
Date/Time Consultation Requested: 09/19/2024 1559
Date/Time Consultation Performed: 09/20/2024 0912
Requesting Provider: Dr. Slater
Performing Provider: Dr. Gray
Reason for Consultation: Fever
Chief Complaint / Past History
History of Present Illness
Eleazar Cardona is a 59-year-old man being evaluated at the request of Dr. Slater in regards to fever. History is obtained from chart review, along with patient interview. Additional history was obtained from the patient's who is at the
bedside.
According to reviewed history, the patient developed a flulike illness approximately 2 months ago with associated fevers, weakness and a cough. No testing was performed at that time. The fevers and weakness seem to improve, but his cough has
persisted. He notes that he sometimes feels like he is going to lose consciousness he coughs so much. There has been no posttussive vomiting.
Approximately 3 weeks ago he saw his PCP and was prescribed a 5-day course of Levaquin, along with a course of steroids and an inhaler. 1 week ago he saw his switch operators supervisor and at this point was prescribed a nasal spray, along with pseudoephedrine.
2 days ago he developed chest pain which was pleuritic in nature on the left side. He saw his outpatient leather finisher, and an EKG was evidently performed which showed a change of some kind of and he was sent to the emergency room for further
evaluation.
Hospital course thus far has been significant for undergoing cardiac catheterization, which revealed only mild coronary artery disease. Laboratory workup without has revealed thrombocytopenia, along with blasts. Since admission he has had several
temperature spikes to 101.4 and 101.6. Infectious Diseases is asked to comment on need for further workup or antibiotic therapy.
The patient reports that prior to admission he he has had subjective fevers, although at times he has taken his temperature and no objective fever was found. He does report that over the past 2 months he has had marked decrease in overall energy
and increasing fatigue. He denies any muscle pain. He denies any nausea, vomiting or diarrhea. He denies any dysuria.
Past History
Additional Past Medical History:
Diverticulosis
DM type II
HTN
HLD
COPD
Additional Past Surgical History:
Hernia repair
Vein stripping
Allergy History:
No Known Allergies Allergy (Verified 09/18/24 17:10)
Medications Reviewed: Yes
Current Antibiotics:
None
Social History
Tobacco: Former Smoker
Alcohol: Occasional
Drug: None
Personal:
Living: With Family
Employment: Employed (Dentist)
Family History
Family History: Not Pertinent
Review of Systems
Vital Signs
Temp Pulse Resp BP Pulse Ox
99.0 F 87 18 92/66 95
09/20/24 07:30 09/20/24 09:00 09/20/24 07:30 09/20/24 07:31 09/20/24 09:20
Physical Exam
Physical Exam
Constitutional: No Acute Distress, Well Developed, Comfortable and Non-toxic
Head: Normocephalic
Eyes: Pupils Equal, Pupils Round, No Conjunctival Hemorrhage and Sclera Anicteric
Oral: No Thrush
Cardiovascular: Regular Rate and S1/S2; Negative S3/S4
Pulmonary: Clear; Negative Wheezes, Rales or Rhonchi
Gastrointestinal: Soft, Non Tender and Non Distended
Genito-Urinary: Negative Rosales
Extremities: Negative Edema, Cyanosis or Erythema
Neurological: Awake and Alert
Psychological: Calm
.
Lab / Diagnostic Study Results
09/20/24 03:42
09/19/24 03:04
Total Counted 100 09/20/24 03:42
Abs Neuts (Manual) 2.1 10^3/uL (1.4-6.5) 09/20/24 03:42
Segmented Neutrophils 40 % (42-75) L 09/20/24 03:42
Band Neutrophils 8 % (0-3) H 09/20/24 03:42
Lymphocytes (Manual) 33 % (20-51) 09/20/24 03:42
Eosinophils (Manual) 2 % (0-6) 09/20/24 03:42
ESR 38 mm/hour (0-20) H 09/20/24 03:42
Lactic Acid 0.8 mmol/L (0.7-2.0) 09/18/24 21:25
Procalcitonin < 0.05 ng/ml (0.0-0.25) 09/19/24 18:48
Microbiology Results
Micro:
09/18/24 22:18 Blood Culture - Preliminary
Blood/Venous No Growth in 24 hours- Final report to follow
09/18/24 21:25 Blood Culture - Preliminary
Blood/Venous No Growth in 24 hours- Final report to follow
09/19/24 18:04 Blood Culture - Pending
Blood/Venous
09/19/24 16:46 Blood Culture - Pending
Blood/Venous
09/18/24 22:18 Influenza Types A & B ([facility]) - Final
Nasal Swab Negative for Influenza A & B, NAAT
Negative results must be combined with clinical observations
and patient history.
Nucleic Acid Amplification test (NAAT)performed on the
[employer] platform.
09/18/2024 blood cultures: No growth x 24 hours
09/19/2024 blood cultures: Pending
09/18/24 Influenza /COVID negative
Imaging:
09/18/2024 CT chest: No evidence of PE. Mild cardiomegaly. Mild groundglass opacification which is nonspecific and possibly represents mild pulmonary edema. Bibasilar subsegmental atelectasis. Scattered small mediastinal and bilateral hilar lymph
nodes noted. Please see full dictation for additional detail. Film personally viewed.
Assessment / Plan
Fever
Leukopenia with thrombocytopenia
Blasts noted on peripheral smear
Diverticulosis
DM type II
HTN
HLD
COPD
Recommendations:
At present, no objective evidence of an infectious process.
Suspect underlying fevers are secondary to hematologic process.
Patient currently undergoing workup for possible leukemia.
No need for antibiotics at present.
Care Review
Plan reviewed with: Physician (Hospitalist; Shaniqua)
[2024-09-20 11:13] VITALS: BP 93/62
[2024-09-20 13:00] LABS: Glucose - Point of Care 111 mg/dl (70-99)
[2024-09-20 15:15] VITALS: BP 92/56
[2024-09-20 16:08] LABS: LDH 285 U/L (120-246); Uric Acid 6.4 mg/dl (3.5-8.5)
--- NOTE | 2024-09-20 16:13 | W.PN.HOSP.TC ---
Today's Communication/Plan
-
dc to home
see dictated note
Assessment / Plan
Assessment / Plan
chest pain, most likely chest wall. As per cardio this was non-ischemic myocardial injury
-Patient underwent cardiac cath on 09/18/24 with reported 'clear coronaries'
-Stop heparin drip
-Patient received aspirin 325mg in ED
pt was definitely tender pressing on left T9-10 costochondrial jxn
Blood Cx - NGTD, reviewed with Dr. Gray, okay for dc
CORONARY ANGIOGRAPHY
Dominance: Right
LM: large, normal
LAD: Large vessel giving rise to a single large diagonal branch and wrapping around the apex. There are trivial luminal irregularities only.
LCx: Large vessel giving rise to a medium caliber high rising OM1, medium caliber OM2, large caliber OM3, and medium caliber LPL branch. There are trivial luminal irregularities only.
RCA: Large vessel with an anterior and downsloping takeoff giving rise to a moderate caliber RPDA and small RPL branch. There is mild nonobstructive disease. There are trivial luminal irregularities only.
-Patient previously taking aspirin 81mg daily as outpatient - Will hold on further anti-platelets for now given his thrombocytopenia until seen by hematology
-Trend troponin peaked 3.[address] Hayes, etio of elevated trop unclear in pt with 'clean' coronaries
- Echo:Normal biventricular size and systolic function without regional wall motion
abnormality.
No significant valvular disease.
Dilated ascending aorta is 4.2 cm.
No prior study available for comparison.
Pancytopenia
-Blood Smear Pathology revealed 10% blasts concerning for MDS/Leukemia
-Consult Hematology, input of Dr. Casarez noted and appreciated
-Monitor counts closely
Low grade intermittent fever of unclear etio
will consult ID, discussed with Dr. Gray, can hold abx for now
Diabetes Mellitus, Type II
-Patient maintained on Mounjaro as outpatient
-HgbA1c 6.5%
-Monitor sugars and continue coverage insulin
Essential Hypertension
-Continue valsartan with hold parameters
Hyperlipidemia
-Lipid Panel
chol 125/trig 64/LDL 70/HDL 43
-Continue rosuvastatin
COPD, no acute exacerbation
-Patient does not use any inhalers as outpatient
CT scan of chest done for Chest congestion: No evidence of central pulmonary embolism.
Mild cardiomegaly.
Mild groundglass opacification, nonspecific, possibly representing some mild pulmonary edematous changes.
Bibasilar subsegmental atelectasis.
Scattered small mediastinal and bilateral hilar lymph nodes, indeterminate.
Anxiety / Insomnia
-Continue temazepam prn
DVT proph: SCDs
reviewed with at bedside
complex situation
Code Status: Full Code
DC to home
reviewed with cardio/ID
Heme report reviewed
More than 30 minutes spent in discharge including
Final examination of the patient
Summarizing hospital stay
Instructions for continuing care to all relevant caregivers
Preparation of discharge records, prescriptions, and referral forms
Total time spent (in minutes): 45
Anticipated Discharge: Today
Subjective/Interval History
-
Date of Service: September 20, 2024
eels well and is anxiously awaiting dc
Objective Data
-
Labs:
Laboratory Results
09/20/24
03:42
WBC 4.5 L
Hgb 13.6
Hct 41.1
Plt Count 67 L
Vital Signs:
Vital Signs
Temp Pulse Resp BP Pulse Ox
99.3 F 95 20 92/56 94
09/20/24 15:16 09/20/24 15:15 09/20/24 15:16 09/20/24 15:15 09/20/24 15:16
I&O
04/08/1409/20/24 09/21/24
06:59 06:59 06:59
Intake Total 720 / 720 1140 / 1140 240 / 240
Output Total 300 / 300
Balance 420 / 420 1140 / 1140 240 / 240
Review of Systems
-
History Source: Patient, Family ( in room) and Coordinated Provider
Constitutional: Reports Fever (101.4 4/2 at 21:06)
EENT: Reports No Symptoms Reported
Respiratory: Reports Cough (ongoing for months)
Abdomen/GI: Reports No Symptoms
Genitourinary: Reports No Symptoms
Neuro: Reports No Symptoms
Physical Exam
-
General: Well Developed, Well Nourished and No Apparent Distress
HEENT: Normocephalic, Atraumatic and Moist Mucous Membranes
Respiratory: Rhonchi (bibasilar rhonchi); Negative Wheezes or Rales
Cardiac: Regular Rhythm and S1/S2
GI: Nontender and Nondistended
Musculoskeletal: No Clubbing, No Cyanosis and No Edema
Skin: Warm and Dry
Neuro: Awake, Alert and Oriented
--- NOTE | 2024-09-20 17:06 | W.DS.TRANS ---
DC Summary - Blood Bank Coordinator
-
Discharge Instructions:
Discharge Diagnosis/Procedures Chest Pain, Heart Catherization
Diet Low Cholesterol
Activity No strenuous activity
Driving Restrictions As prior to admission
Bathing Restrictions None
Instructions:
Stand-Alone Forms: DC Inst - Same Day PCI
Changes to Home Medications: Yes
Discharge Medications:
DC Medications w/original date entered in [facility]
rosuvastatin 5 mg tablet 5 mg PO HS 09/18/24
temazepam 15 mg capsule 15 mg PO HSPRN PRN anxiety/sleep 09/18/24
metformin 500 mg tablet 500 mg PO BID #60 tabs 09/20/24
Home Medication Changes
stop Mounjaro
hold Valsartan and follow BP at home
stop Aspirin due to low platelets
start Metformin
Pending Results: No
--- NOTE | 2024-09-20 18:10 | PTCARENOTE ---
Pt seen by Bryon kSy and Isaac. Telemetry and IV device removed. Discharge instructions reviewed with pt and his regarding medications, wound care, reporting cares and concerns and follow up testing. Very good understanding
verbalized. Pt escorted out via wheelchair and pt discharged to home.
[2024-09-20 19:29] LABS: Hepatitis C Antibody Negative (Negative)
[2024-09-21 11:21] LABS: Number Of Markers 39 markers; Source Blood
== END 2024-09-20 17:10 | disposition home or self-care (01) | DRG 287 ==
LOC: IVU 19:27
PROVIDERS: Internal Medicine Cardiovascular Disease; Internal Medicine Hematology & Oncology; Nurse Practitioner; Nurse Practitioner Family; ADMITTING PHYSICIAN Internal Medicine; CONSULT PHYSICIAN Student in an Organized Health Care Education/Training Program; EMERGENCY PHYSICIAN Emergency Medicine; FAMILY PHYSICIAN Internal Medicine; OTHER PHYSICIAN Internal Medicine Hematology & Oncology; OTHER PHYSICIAN Internal Medicine Infectious Disease
PROC: 4A023N7 Measurement of Cardiac Sampling and Pressure, Left Heart, Percutaneous Approach (ICD-10-PCS; 2024-09-18)
PROC: B2111ZZ Fluoroscopy of Multiple Coronary Arteries using Low Osmolar Contrast (ICD-10-PCS; 2024-09-18)
DX: I5A Non-ischemic myocardial injury (non-traumatic) (principal); D61.818 Other pancytopenia; J98.11 Atelectasis; E11.9 Type 2 diabetes mellitus without complications; E78.00 Pure hypercholesterolemia, unspecified; I10 Essential (primary) hypertension; I25.10 Atherosclerotic heart disease of native coronary artery without angina pectoris; J44.9 Chronic obstructive pulmonary disease, unspecified; F41.9 Anxiety disorder, unspecified; G47.00 Insomnia, unspecified; K57.30 Diverticulosis of large intestine without perforation or abscess without bleeding; Z79.82 Long term (current) use of aspirin; Z82.49 Family history of ischemic heart disease and other diseases of the circulatory system; Z87.891 Personal history of nicotine dependence; Z11.52 Encounter for screening for COVID-19
CPT/HCPCS: 71045; 71275; 80053; 80061; 81003; 82962; 83036; 83605; 83615; 83735; 84145; 84484; 84550; 85025; 85652; 85730; 86803; 87040; 87502; 87811; 93005; 93306; 93458; 96374; 99152; 99153; 99291; C1894; Q9967

== ENCOUNTER → 2024-09-24 10:20 | Outpatient (REF) | payer OTHER, SELFPAY ==
[2024-09-24 10:53] VITALS: BP 99/71; BP_SYST 57; BMI 32.1
[2024-09-24 11:02] LABS: INR 1.11; PT 14.6 Sec (11.4-14.6)
[2024-09-24 11:17] LABS: Hematocrit 36.7 % (39.0-52.0); Hemoglobin 12.4 g/dL (13.0-18.0); Mean Corp Hgb Conc. 33.8 g/dL (33.0-37.0); Mean Corpuscular Hgb 30.7 pg (27.0-31.0); Mean Corpuscular Volume 90.8 fL (80.0-94.0); Mean Platelet Volume 12.5 fL (7.4-10.4); Platelet Count 75 10^3/uL (130-400); Red Blood Cell Count 4.04 10^6/uL (4.70-6.10); White Blood Cell Count 4.9 10^3/uL (4.8-10.8)
[2024-09-24 11:20] VITALS: BP 105/75
[2024-09-24] MEDS: ATIVAN 0.5 MG IV (11:20)
[2024-09-24] MEDS: NSS (PRESERVATIVE FREE) 0.25 ML IV (11:20)
[2024-09-24 12:15] VITALS: BP 92/74
[2024-09-24 12:26] LABS: Absolute Neutrophils -Man Diff 1.3 10^3/uL (1.4-6.5); Anisocytosis Slight; Band Neutrophils 0 % (0-3); Blasts 1 % (-); Eosinophils 2 % (0-6); Lymphocytes 47 % (20-51); Monocytes 22 % (2-9); Normal RBC Morphology No; Nucleated Red Blood Cells 2 (-); Platelets Checked Yes; Polychromasia Slight; Segmented Neutrophils 28 % (42-75)
[2024-09-24 12:27] LABS: Total Cells Counted 100
== END ==
LOC: RADI 10:20
PROVIDERS: ATTENDING PHYSICIAN Nurse Practitioner Acute Care; FAMILY PHYSICIAN Internal Medicine
DX: C92.00 Acute myeloblastic leukemia, not having achieved remission (principal); D69.6 Thrombocytopenia, unspecified
CPT/HCPCS: 88305; 88311; 88312; 36415; 38222; 77012; 85025; 85610; 88313